=== PATIENT | female | born 1945 | race Caucasian/White ===

== ENCOUNTER 2023-05-23 10:42 | Outpatient (OUT) | payer MEDICARE, SELFPAY ==
[2023-05-23 11:10] LABS: Calcium 8.9 mg/dL (8.5-10.1); Estimated GFR (African America >60 (>=60); Estimated GFR (Non-African Ame >60 (>=60)
== END 2023-05-23 10:43 | disposition home or self-care (01) ==
LOC: LAB 10:51
PROVIDERS: Visit Provider Nurse Practitioner Family
DX: M85.88 Other specified disorders of bone density and structure, other site (principal)
CPT/HCPCS: 36415; 82310; 82565

== ENCOUNTER 2023-06-30 10:00 | Outpatient (OUT) | payer MEDICARE, SELFPAY ==
[2023-06-30 09:59] VITALS: BP 124/64; PULSE 54; RESP 18; TEMP 36.2; O2SAT 96
[2023-06-30] MEDS: ZOLEDRONIC ACID/MANNITOL-WATER 5 MG/100 ML BOTTLE 400 MG IV (10:14)
--- NOTE | 2023-06-30 10:20 | PC.NURSE ---
Pt is here for reclast infusion, she has received this in the past without difficulty. Patient denies any concerns today. Reclast infusing without complication.
--- NOTE | 2023-06-30 10:37 | PC.NURSE ---
Patient completed reclast infusion without any issues. IV was discontinued and she denies any pain, redness, or swelling at the site. She was discharged home.
== END 2023-06-30 10:01 | disposition home or self-care (01) ==
LOC: INF 10:01
PROVIDERS: Visit Provider Nurse Practitioner Family
DX: M85.80 Other specified disorders of bone density and structure, unspecified site (principal)
CPT/HCPCS: 96366; J3489

== ENCOUNTER 2025-06-18 12:40 | Emergency (ER) | payer MEDICARE, SELFPAY ==
[2025-06-18 12:43] VITALS: BP 168/82; PULSE 67; TEMP 37.2; O2SAT 97; BMI 25.1
--- NOTE | 2025-06-18 12:57 | CT_ITS ---
The [address] [address] Patient Name: RAGHU VAZQUEZ MRN: [id number] date: 1945 Sex: F Assigned Patient Location: ED.MAIN Current Patient Location: ED.MAIN Accession/Order Number: [id number] Exam Date: 06/18/2025 14:07 Report Date: 06/18/2025 14:10 At the request of: IZABELA RAJAN MD Procedure: CT pelvis wo con CT PELVIS WITHOUT INTRAVENOUS CONTRAST: CLINICAL HISTORY: Fall COMPARISON: None TECHNIQUE: Spiral images were obtained through the pelvis without intravenous contrast. This CT exam was performed using one or more following dose reduction techniques: Automated exposure control, adjustment of the mA and/or kV according to patient size, or use of iterative reconstruction technique. FINDINGS: Moderate severe degenerative changes right hip with joint space narrowing marginal osteophytosis and subchondral cyst formation involving the femoral head. Similar findings to moderate severity left hip. No fracture or dislocation. Pelvis is intact. No diastases of the sacroiliac joints or pubic symphysis. Colonic diverticulosis noted. CT/CT pelvis wo con IMPRESSION: Degenerative changes. Negative acute osseous abnormality. Impression dictated by: Marcell Brown M.D. 06/18/2025 2:10 PM Dictation Location: [place] [address] Electronically authenticated by: [id number] Y Date: 06/18/2025 14:10
[2025-06-18] MEDS: OXYCODONE HCL/ACETAMINOPHEN 5MG/325MG 1 TAB PO (13:06)
--- NOTE | 2025-06-18 14:24 | ED_ITS ---
HPI HPI - Extremity Injury (Lower) General Chief Complaint: Extremity Injury, Lower Stated Complaint: FALL X'S 10 DAYS AGO; R HIP PAIN Time Seen by Provider: 06/18/25 12:52 Source: patient Mode of arrival: walk-in Limitations: no limitations History of Present Illness HPI Narrative: The patient mentioned that she tripped and fell almost 10 days ago, it was from a standing position there was no loss of consciousness or any other concerns at that moment, but that she has been having this right hip pain since then, the pain is not getting better only with Tylenol The patient denies any other concerns She also mentioned that the pain in the right hip radiate to the groin area Related Data Previous Rx's ?Medication ?Instructions ?Recorded oxycodone-acetaminophen 5 mg-325 1 tab PO Q8H PRN pain 3 days #9 06/18/25 mg tablet (Percocet) tabs Allergies Allergy/AdvReac Type Severity Reaction Status Date / Time ibuprofen Allergy Severe bleeding Verified 06/18/25 12:49 anastrozole Allergy Unknown unknwown Verified 06/18/25 12:49 Penicillins Allergy Hives Verified 06/18/25 12:49 codeine AdvReac Nausea Verified 06/18/25 12:49 Sulfa (Sulfonamide AdvReac Nausea Verified 06/18/25 12:49 Antibiotics) Opioid HPI Opioid Management Most Recent Pain and Opioid Data: Last Pain Scale 2 Today, 12:43 Last MAR Pain Assessment Today, 13:06 Review of Systems ROS Status of ROS 10 or more systems reviewed and unremark able except as noted in history and below PFSH PFSH Social History Little interest or pleasure in doing things: not at all Feeling down, depressed, or hopeless: not at all Exam Narrative Exam Narrative: Nurses notes and vital signs reviewed and patient is not hypoxic. General: Well-appearing and in no apparent distress. Skin: Warm, dry, no pallor noted. No rash. Head: Normocephalic, atraumatic. Neck: Supple, non-tender. Cardiovascular: Regular Rate and Rhythm without murmur, gallop or rub. Respiratory: No accessory muscle use or respiratory distress. Lungs are clear to auscultation, no wheezing, rales or rhonchi Chest Wall: no tenderness Back: No midline thoracic or lumbar vertebral tenderness. No CVA tenderness Musculoskeletal: The patient have ecchymosis and bruising the posterior aspect of the right buttock that is healing, there is a full range of movement of the right hip and no vascular injury detected in the lower extremity GI: Abdomen is soft, non-distended. Normal bowel sounds. No masses appreciated. No tenderness to palpation. No rebound, guarding, or rigidity noted. Neurological: A&O x4. No cranial nerve dysfunction observed. No truncal ataxia. Moves all extremities. Sensation intact. Psychiatric: Cooperative and interactive. Normal mood and affect. Constitutional Vital Signs, click to edit/add: Last Vital Signs Temp 98.9 F 06/18/25 12:43 Pulse 67 06/18/25 12:43 Resp 16 06/18/25 12:43 BP 168/82 H 06/18/25 12:43 Pulse Ox 97 06/18/25 12:43 O2 Del Method Room Air 06/18/25 12:43 Course Vital Signs Vital signs: Vital Signs Temperature 98.9 F 06/18/25 12:43 Pulse Rate 67 06/18/25 12:43 Respiratory Rate 16 06/18/25 12:43 Blood Pressure 168/82 H 06/18/25 12:43 Pulse Oximetry 97 06/18/25 12:43 Oxygen Delivery Method Room Air 06/18/25 12:43 Temperature 98.9 F 06/18/25 12:43 Pulse Rate 67 06/18/25 12:43 Respiratory Rate 16 06/18/25 12:43 Blood Pressure 168/82 H 06/18/25 12:43 Pulse Oximetry 97 06/18/25 12:43 Oxygen Delivery Method Room Air 06/18/25 12:43 MDM - Extremity Injury (Lower) MDM Narrative Medical decision making narrative: CT of the pelvis showed no acute pathology The patient was treated in the ER with Percocet after which she was feeling better she was discharged home with Percocet prescription Supportive care in addition to follow-up with orthopedic in case needed outpatient The patient is to follow up with primary care physician in next 2-3 days or to return to the emergency department should any of the signs or symptoms worsen or new symptoms develop. The patient agrees with the following Diagnosis and Treatment plan and the patient will be discharged home. Discharge Plan Discharge Chief Complaint: Extremity Injury, Lower Clinical Impression: Contusion of hip Patient Disposition: Home, Self-Care Time of Disposition Decision: 14:24 Condition: Good Prescriptions / Home Meds: New oxycodone-acetaminophen [Percocet] 5-325 mg tablet 1 tab PO Q8H PRN (Reason: pain) 3 Days Qty: 9 0RF Print Language: Kinyarwanda Instructions: Contusion in Adults (ED), Hip Contusion (ED) Referrals: GIORGIO JOHNSON [Physician, Orthopedics] - 1 week [facility] [Primary Care Provider, Family Practice] - 1 week Discharge Date/Time: 06/18/25 14:31
== END 2025-06-18 14:31 | disposition home or self-care (01) ==
PROVIDERS: Emergency Provider Emergency Medicine; PCP Family Medicine
DX: S70.01XA Contusion of right hip, initial encounter (principal); W01.0XXA Fall on same level from slipping, tripping and stumbling without subsequent striking against object, initial encounter
CPT/HCPCS: 72192; 99284